=== PATIENT | male | born 1970 | race American Indian/Alaskan Native ===

== ENCOUNTER 2017-04-24 12:22 | Emergency (ER) | payer SELFPAY ==
[2017-04-24 12:55] LABS: Basophils % (Auto) 0.5 % (0.0-1.8); Eosinophils % (Auto) 0.3 % (0.0-4.3); Hematocrit 42.1 % (35.5-45.6); Hemoglobin 14.7 gm/dl (11.8-15.2); Mean Corpuscular HGB Conc 35 % (32-34); Mean Corpuscular Hemoglobin 31 pg (28-32); Mean Corpuscular Volume 88 fl (84-94); Platelet Count 363 K/mm3 (140-440); Red Blood Count 4.76 M/mm3 (3.65-5.03); Red Cell Distribution Width 12.6 % (13.2-15.2); White Blood Count 9.2 K/mm3 (4.5-11.0)
[2017-04-24 13:07] LABS: INR 0.97 (0.87-1.13)
[2017-04-24 13:08] LABS: Partial Thromboplastin Time 31.3 Sec. (24.2-36.6)
[2017-04-24 13:17] LABS: Anion Gap 15 mmol/L; BUN/Creatinine Ratio 8.75; Blood Urea Nitrogen 7 mg/dL (9-20); Calcium 9.6 mg/dL (8.4-10.2); Carbon Dioxide 27 mmol/L (22-30); Chloride 97.5 mmol/L (98-107); Glucose 80 mg/dL (75-100); Potassium 3.8 mmol/L (3.6-5.0); Sodium 136 mmol/L (137-145)
--- NOTE | 2017-04-24 13:49 | Cat Scan Report ---
CT HEAD WITHOUT CONTRAST: HISTORY: Stroke. Serial contiguous axial images were obtained through the cranium. Intravenous contrast material was not administered. The ventricles are normal in size and appearance. There is no mass effect or midline shift. No areas of abnormally increased or decreased attenuation are seen. No mass lesion is seen. The mastoid air cells and visualized portions of the sinuses are normal. IMPRESSION: Cranial CT scan within normal limits.
--- NOTE | 2017-04-24 17:43 | Emergency Department Report ---
HPI - General Chief Complaint: Neuro Symptoms/Deficit - HPI HPI: This is a 47-year-old black male with no past medical history. Patient does not have a primary care doctor and has not seen one in a lot. He comes here today complaining of inability to dorsiflex his right foot. Patient states symptoms have been going on for 3 days. And is noticing them more when he walks. Denies any upper extremity involvement of his symptoms. Denies any fever or chills night sweats. Denies any back pain and hip pain and knee pain and ankle pain. ED Past Medical Hx - Past Medical History Previous Medical History?: No - Surgical History Past Surgical History?: No - Medications Home Medications: Home Medications Medication Instructions Recorded Confirmed Last Taken Type No Known Home Medications [No 04/24/17 04/24/17 Unknown History Reported Home Medications] ED Review of Systems ROS: Stated complaint: RT SIDE FEELING NUMB Other details as noted in HPI Constitutional: no symptoms reported Cardiovascular: as per HPI Neurological: weakness Physical Exam - Physical Exam Vital Signs: Vital Signs 04/24/17 12:29 Temperature 98.6 F Pulse Rate 94 H Respiratory 20 Rate Blood Pressure 127/86 O2 Sat by Pulse 100 Oximetry Physical Exam: Gen. alert and oriented 3 in no distress Head atraumatic normocephalic Eyes PERR LA EOMI Chest regular rate and rhythm normal S1-S2 lungs clear bilaterally Abdomen soft nondistended Back no point tenderness paravertebral tenderness Neuro: Minor, right foot drop, patient able to ambulate without difficulty M.D. ambulated patient without issues. Psych normal mood. ED Course Vital Signs 04/24/17 12:29 Temperature 98.6 F Pulse Rate 94 H Respiratory 20 Rate Blood Pressure 127/86 O2 Sat by Pulse 100 Oximetry - Reevaluation(s) Reevaluation #1: 04/24/17 17:55 And able to ambulate in the ER to bathroom without issues. ED Medical Decision Making - Lab Data Result diagrams: 04/24/17 12:45 04/24/17 12:45 Critical care attestation.: If time is entered above; I have spent that time in minutes in the direct care of this critically ill patient, excluding procedure time. ED Disposition Clinical Impression: Right foot drop Disposition: DC-01 TO HOME OR SELFCARE Is pt being admited?: No Does the pt Need Aspirin: No Condition: Stable Instructions: Foot Drop (ED) Referrals: PRIMARY CARE, [Primary Care Provider] - 3-5 Days
[2017-04-24 18:16] VITALS: BP 128/80
== END 2017-04-24 18:16 | disposition home or self-care (01) ==
LOC: ED 12:22
DX: M21.371 Foot drop, right foot (principal)
CPT/HCPCS: 36415; 70450; 80048; 84484; 85025; 85610; 85670; 85730; 93005; 93010; 99284